=== PATIENT | female | born 1955 | race Caucasian/White ===

== ENCOUNTER 2017-02-09 08:58 | Emergency (ER) | payer MEDICAID ==
[~2017-02-09] VITALS: Ht 160 cm; Wt 90.7 kg
[~2017-02-09 08:58] MED LIST: ASPI-495 PO; ATOR20TA PO; CALC-15 PO; CHOL500052 PO; ESTR-3 PO; LISI-658 PO; METF500T4 PO; METO50TA3 PO; OMEP20CA10 PO
--- NOTE | 2017-02-09 09:00 | NUR ---
BIB SELF C/O COCCYX PAIN RADIATING LEFT BACK PAIN S/P FALL X 2 DAYS REGISTRAR COLLEGE OR UNIVERSITY, NAD NOTED, VSS, RESP EVEN AND UNLABORED, SKIN DRY AND WARM, WAITING FOR MD ACKERMAN.
[2017-02-09] MEDS ORDERED: KETOROLAC TROMETHAMINE INJ 30 MG/ML VIAL ONE (09:25)
--- NOTE | 2017-02-09 09:28 | NUR ---
PT TO XRAY
[2017-02-09] MEDS ORDERED: KETOROLAC TROMETHAMINE INJ 60 MG/2 ML VIAL IM ONE (09:30)
--- NOTE | 2017-02-09 10:23 | NUR ---
SANTIAGO MYRICK SPOKE TO DR OGDEN TRANSFER TO DR SCOTT
[2017-02-09 10:39] VITALS: BP 111/57
== END 2017-02-09 10:40 | disposition home or self-care (01) ==
LOC: ER 08:59
DX: S32.10XA Unspecified fracture of sacrum, initial encounter for closed fracture (principal); S32.2XXA Fracture of coccyx, initial encounter for closed fracture; I10 Essential (primary) hypertension; E11.9 Type 2 diabetes mellitus without complications; K21.9 Gastro-esophageal reflux disease without esophagitis; E78.00 Pure hypercholesterolemia, unspecified; Z90.710 Acquired absence of both cervix and uterus; Z90.49 Acquired absence of other specified parts of digestive tract; Z79.82 Long term (current) use of aspirin; W01.0XXA Fall on same level from slipping, tripping and stumbling without subsequent striking against object, initial encounter; Y93.89 Activity, other specified; Y92.89 Other specified places as the place of occurrence of the external cause; Y99.8 Other external cause status
CPT/HCPCS: 72110; 72170; 96372; 99284; A4606; J1885; Z7610

== ENCOUNTER 2018-09-24 06:59 | Emergency (ER) | payer MEDICAID, OTHER ==
[~2018-09-24] VITALS: Ht 162.6 cm; Wt 90.7 kg
[~2018-09-24 06:59] MED LIST changes: +METF-440 PO; -METF500T4 PO; +METO50TA16 PO; -METO50TA3 PO; -OMEP20CA10 PO; +OMEP20CA11 PO
--- NOTE | 2018-09-24 07:10 | NUR ---
Pt BIBSELF FROM HOME C/O RT FOOT PAIN & PRESSURE SINCE SATURDAY, AND HAS BEEN GETTING WORSE TODAY AND IS RADIATING UP TO THE RT KNEE. Pt DENIES HAVING GLF @ HOME/DENIES TRAUMA. Pt DENIES HAVING SOB. DENIES HAVING N/V/D. Pt ALREADY SEEN BY MD. NO S/S OF ACUTE DISTRESS OR SOB NOTED. WILL ENDORSE TO DAYSHIFT RN FOR Pt'S YOVANNY.
--- NOTE | 2018-09-24 08:54 | NUR ---
Patient ambulatory with a steady gait. NO IV heplock. Patient discharged to home in stable condition. Written and verbal after care instructions given. Patient verbalizes understanding of instruction.
[2018-09-24 08:55] VITALS: BP 143/72
== END 2018-09-24 08:57 | disposition home or self-care (01) ==
LOC: ER 06:59
DX: E11.40 Type 2 diabetes mellitus with diabetic neuropathy, unspecified (principal); I10 Essential (primary) hypertension; K21.9 Gastro-esophageal reflux disease without esophagitis; E78.00 Pure hypercholesterolemia, unspecified; Z90.49 Acquired absence of other specified parts of digestive tract; Z98.890 Other specified postprocedural states; Z79.82 Long term (current) use of aspirin
CPT/HCPCS: 93971-TC

== ENCOUNTER 2018-12-16 15:29 | Emergency (ER) | payer MEDICAID, OTHER ==
[~2018-12-16] VITALS: Ht 160 cm; Wt 91.6 kg
[2018-12-16] MEDS ORDERED: KETOROLAC TROMETHAMINE INJ 30 MG/ML VIAL IM ONE (16:30)
[2018-12-16] MEDS ORDERED: KETOROLAC TROMETHAMINE INJ 30 MG/ML VIAL ONE (16:44)
[2018-12-16] MEDS ORDERED: HYDROCODONE/APAP 5/325MG 1 EACH TABLET ONE (16:46)
[2018-12-16] MEDS ORDERED: HYDROCODONE/APAP 5/325MG 1 EACH TABLET PO ONE (17:00)
[2018-12-16 17:06] VITALS: BP 139/67
== END 2018-12-16 17:08 | disposition home or self-care (01) ==
LOC: ER 15:33
DX: M25.512 Pain in left shoulder (principal); I10 Essential (primary) hypertension; E11.9 Type 2 diabetes mellitus without complications; K21.9 Gastro-esophageal reflux disease without esophagitis; E78.00 Pure hypercholesterolemia, unspecified; Z98.890 Other specified postprocedural states; Z90.710 Acquired absence of both cervix and uterus; Z79.82 Long term (current) use of aspirin; Z79.899 Other long term (current) drug therapy
CPT/HCPCS: 73030-TC; J1885

== ENCOUNTER 2018-12-22 07:03 | Emergency (ER) | payer MEDICAID ==
[~2018-12-22] VITALS: Ht 160 cm; Wt 90.7 kg
--- NOTE | 2018-12-22 07:12 | NUR ---
LEFT UPPER ARM BRUISE, PAIN, PRESSURE SINCE YESTERDAY. ON ASPIRIN. ON ROOM AIR, BREATHING EVENLY AND UNLABORED. CONNECTED TO THE MONITOR AND PULSE OX. KEPT COMFORTABLE. WILL CONTINUE TO MONITOR ACCORDINGLY.
--- NOTE | 2018-12-22 07:12 | NUR ---
AT BEDSIDE FOR EVAL
--- NOTE | 2018-12-22 07:19 | NUR ---
Patient discharged to home in stable condition. Written and verbal after care instructions given. Patient verbalizes understanding of instruction.
[2018-12-22 07:20] VITALS: BP 151/73
== END 2018-12-22 07:20 | disposition home or self-care (01) ==
LOC: ER 07:10
DX: S40.022A Contusion of left upper arm, initial encounter (principal); I10 Essential (primary) hypertension; E11.9 Type 2 diabetes mellitus without complications; K21.9 Gastro-esophageal reflux disease without esophagitis; E78.00 Pure hypercholesterolemia, unspecified; Z98.890 Other specified postprocedural states; Z90.710 Acquired absence of both cervix and uterus; Z79.899 Other long term (current) drug therapy; Z79.84 Long term (current) use of oral hypoglycemic drugs; Z79.82 Long term (current) use of aspirin; X58.XXXA Exposure to other specified factors, initial encounter; Y93.89 Activity, other specified; Y92.89 Other specified places as the place of occurrence of the external cause; Y99.8 Other external cause status

== ENCOUNTER 2021-01-27 09:23 | Outpatient (CLI) | payer MEDICARE, OTHER ==
[~2021-01-27 09:23] MED LIST changes: -OMEP20CA11 PO; +OMEP20CA15 PO
== END 2021-01-27 23:59 | disposition home or self-care (01) ==
LOC: LAB 09:23
PROVIDERS: ATTEND Physician Assistant
DX: Z01.812 Encounter for preprocedural laboratory examination (principal); Z20.822 Contact with and (suspected) exposure to COVID-19
CPT/HCPCS: C9803; U0003

== ENCOUNTER 2021-02-02 05:17 | Inpatient (IN) | payer OTHER, MEDICARE ==
[~2021-02-02] VITALS: Ht 160 cm; Wt 87.5 kg
[2021-02-02] MEDS ORDERED: HYDROMORPHONE INJ 2 MG/ML DISP.SYRIN ONE (06:30)
[2021-02-02] MEDS ORDERED: ROCURONIUM BROMIDE 50 MG/5 ML ONE (06:30)
[2021-02-02] MEDS ORDERED: POLYMYXIN B SULFATE 500,000 UNITS ONE (07:03)
[2021-02-02] MEDS ORDERED: BUPIVACAINE 0.5 % PF 150 MG/30 ML VIAL ONE (07:03)
[2021-02-02] MEDS ORDERED: TRANEXAMIC ACID 3,000 MG in SODIUM CHLORIDE IRRIG SOLUTION 70 ML IR ONE (07:30)
[2021-02-02] MEDS ORDERED: FENTANYL PF 100MCG/2ML AMPUL ONE (08:27)
[2021-02-02] MEDS ORDERED: HYDROMORPHONE 1 MG/1 ML DISP.SYRIN ONE (08:49)
[2021-02-02] MEDS ORDERED: MAG HYDROX/AL HYDROX/SIMETH 30 ML UDC PO PRN ×2 (09:30→14:00)
[2021-02-02] MEDS ORDERED: diphenhydrAMINE HCL 25 MG CAPSULE PO PRN (09:30)
[2021-02-02] MEDS ORDERED: CLONIDINE HCL 0.1 MG TABLET PO PRN (09:30)
[2021-02-02] MEDS ORDERED: ONDANSETRON HCL/PF 4 MG/2 ML VIAL IV PRN (09:30)
[2021-02-02] MEDS ORDERED: oxyCODONE IR immediate release 5 MG PO PRN (09:30)
[2021-02-02] MEDS ORDERED: MENTHOL/CETYLPYRD (CEPACOL) 1 LOZ LOZENGE PO PRN (09:30)
[2021-02-02] MEDS ORDERED: HYDROMORPHONE 1 MG/1 ML DISP.SYRIN SQ ONE (09:30)
--- NOTE | 2021-02-02 10:15 | NUR ---
MS/RN RECEIVING NOTES RECEIVED PATIENT VIA GURNEY FROM DAY SURGERY, ADMITTED TO [facility]. S/P REVERSE TOTAL RIGHT SHOULDER ARTHROPLASTY WITH DR. ESQUIVEL. PATIENT IS ALERT AND ORIENTED X4, ABLE TO MAKE NEEDS KNOWN. SLEEPY. PER OR NURSE PAT, PATIENT HAS A GENERAL ANESTHESIA DURING SURGERY. ON OXYGEN AT 3 LPM VIA NASAL CANNULA, IV ACCESS ON LEFT HAND G#22 IS INTACT AND PATENT WITH A RUNNING IV OF D5 1/2 NS @ 125 ML/HR. V/S TAKEN: BP-116/62, PULSE- 70, RR-18, T-98.7, O2 SAT AT 97%. SOME DISCOMFORTS REPORTED. HAS A RIGHT SHOULDER IMMOBILIZER. ORIENTED PATIENT TO THE UNIT. SURGERY SITE ON RIGHT SHOULDER IS WRAPPED ON BANDAGE. INTACT AND CLEAN. SAFETY MEASURES IN PLACED: BED LOCKED ON LOWEST POSITION, SIDE RAILS UPX2, HOB ELEVATED, CALL LIGHT WITHIN REACH. WILL CONTINUE TO MONITOR PATIENT.
[2021-02-02] MEDS ORDERED: ACETAMINOPHEN 650 MG/20.3 ML UDC PO PRN ×2 (11:00)
[2021-02-02] MEDS ORDERED: HYDROCODONE/APAP 5/325MG TABLET PO PRN (11:00)
[2021-02-02] MEDS ORDERED: ZOLPIDEM TARTRATE 5 MG TABLET PO PRN ×2 (11:00→14:00)
[2021-02-02] MEDS ORDERED: BISACODYL SUPP (10 MG) 10 MG/SUPP.RECT SUPP.RECT RC PRN (11:00)
[2021-02-02] MEDS ORDERED: SENNOSIDES 8.6 MG TABLET PO PRN (11:00)
[2021-02-02 11:30] VITALS: BP 116/62
[2021-02-02] MEDS: IV D5/0.45 NACL 1,000 ML IV SCH ×2 (12:13→20:06)
[2021-02-02] MEDS ORDERED: ONDANSETRON HCL/PF 4 MG/2 ML VIAL IVP PRN (14:00)
[2021-02-02] MEDS ORDERED: Z GUARD REMEDY 2 OZ OINT TP PRN (14:00)
[2021-02-02] MEDS ORDERED: DEXTROSE 50%-WATER 50 ML DISP.SYRIN IV PRN (14:00)
[2021-02-02] MEDS ORDERED: MAGNESIUM HYDROXIDE 30 ML UDC PO PRN (14:00)
[2021-02-02] MEDS: ANCEF 1 GM/50 ML D5W IV SCH ×2 (15:29→22:32)
[2021-02-02 16:13] VITALS: BP 119/65
[2021-02-02] MEDS: METFORMIN 500 MG TABLET PO SCH (17:04)
[2021-02-02] MEDS: DOCUSATE SODIUM 100 MG CAPSULE PO SCH (17:04)
[2021-02-02] MEDS: METOPROLOL TARTRATE 50 MG TABLET PO SCH (17:04)
[2021-02-02] MEDS: BLOOD SUGAR DIAGNOSTIC 1 EACH STRIP IN SCH ×2 (17:15→21:37)
[2021-02-02] MEDS: INSULIN REGULAR, HUMAN 100 UNIT/ML 3 ML VIAL SQ PRN ×2 (17:23→22:12)
--- NOTE | 2021-02-02 18:44 | NUR ---
RN MS CLOSING NOTES Pt IS IN BED COMFORTABLE. SHE IS A/OX4 AND ON ROOM AIR. BREATHING IS EVEN AND UNLABORED. NO S/S OF DISTRESS. Pt HAS A L HAND IV WITH D5 1/2 NS @ 125 mL/hr. IV IS PATENT AND INTACT. Pt HAD R REVERSE TOTAL SHOULDER ARTHROPLASTY, LAST PAIN MED GIVEN WAS AT 1103, DILAUDID 0.5mL WAS GIVEN. HAS TOLERABLE PAIN AT THE MOMENT, AND HAS REFUSED PAIN MEDS SINCE LAST MED GIVEN. HAS A COMMODE AT BEDSIDE, WILL CALL FOR ASSISTANCE. ALL SAFETY MEASURES ARE IN PLACE, BED IS LOCKED AND IN LOWEST POSITION, 2 SIDE RAILS UP, CALL LIGHT AND BEDSIDE TABLE ARE WITHIN REACH. WILL ENDORSE TO ONCOMING SHIFT.
--- NOTE | 2021-02-02 19:22 | NUR ---
RN OPENING NOTE PATIENT IN BED, SITTING UP. S/P TOTAL R SHOULDER ARTHROPLASTY THIS AM. SLING ON R SHOULDER. PATIENT COMPLAINING OF MODERATE PAIN, WILL MANAGE PAIN APPROPRIATELY. PATIENT CURRENTLY ON RA, TOLERATING WELL, NO SOB/RESPIRATORY DISTRESS. L HAND 22 G PATENT AND INTACT, D5 1/2 NS RUNNING AT 125 ML/HR. SAFETY MEASURES IN PLACE: BED LOCKED AND IN LOWEST POSITION, CALL LIGHT WITHIN REACH, SIDE RAILS UP. WILL MONITOR PATIENT CLOSELY.
[2021-02-02] MEDS: HYDROMORPHONE 1 MG/1 ML DISP.SYRIN SQ PRN (19:58)
--- NOTE | 2021-02-02 19:58 | NUR ---
RN NOTE DILAUDID SQ 1 MG GIVEN FOR PAIN 10/04, WILL REASSESS PAIN AT A LATER TIME
[2021-02-02 20:00] VITALS: BP 105/55
[2021-02-02] MEDS ORDERED: RIVAROXABAN 10 MG TABLET PO SCH (21:00)
[2021-02-02] MEDS ORDERED: PANTOPRAZOLE 40 MG TABLET.DR PO SCH (22:00)
[2021-02-02] MEDS ORDERED: ATORVASTATIN 10 MG TABLET PO SCH (22:00)
--- NOTE | 2021-02-02 22:00 | NUR ---
RN NOTE BS 193 MG/DL, 3 UNIT COVERAGE GIVEN. WILL MONITOR PATIENT CLOSELY FOR HYPOGLYCEMIA.
[2021-02-03] MEDS: IV D5/0.45 NACL 1,000 ML IV SCH ×2 (04:00→11:42)
--- NOTE | 2021-02-03 04:00 | NUR ---
RN NOTE L HAND IV ACCESS INFILTRATED, DAVID VENDOR RELATIONSHIP MANAGER CALLED TO HAVE IV INSERTED. LARM/SHOULDER 22G INSERTED, PATENT AND INTACT, BUT, UNLESS MANUALLY STRETCHED THE IV PUMP WILL KEEP ALARMING "DOWN STREAM OCCLUSION", WILL INFORM ATMOSPHERIC DRIER TENDER MD REGARDING INSERTING IV
[2021-02-03] MEDS: HYDROMORPHONE 1 MG/1 ML DISP.SYRIN SQ PRN ×2 (04:25→14:04)
--- NOTE | 2021-02-03 04:25 | NUR ---
RN NOTE ADMINISTERED DILAUDID FOR PAIN 10/04, WILL REASSESS PAIN AT A LATER TIME. FIRST HYDROMORPHONE VIAL LEAKING CHARGE NURSE AWARE, WITNESSED WASTE OF MED COMPLETED ON PYXIS.
--- NOTE | 2021-02-03 06:03 | NUR ---
REQUESTED FOR MIDLINE INSERTION MULTIPLE PIV ATTEMPTS FAILED. ORDERED. CHARGE NURSE AWARE. Addendum: 02/03/21 at 0633 by SOILA GILES RN patient refuse midline
[2021-02-03] MEDS: BLOOD SUGAR DIAGNOSTIC 1 EACH STRIP IN SCH ×2 (06:34→11:42)
[2021-02-03] MEDS: INSULIN REGULAR, HUMAN 100 UNIT/ML 3 ML VIAL SQ PRN (06:37)
[2021-02-03 06:39] LABS: BASOPHILS % (AUTO) 0.5 % (0.0-2.0); EOSINOPHILS % (AUTO) 0.2 % (0.0-6.0); HEMATOCRIT 32 % (33-45); HEMOGLOBIN 9.9 g/dL (11.5-14.8); LYMPHOCYTES % (AUTO) 27.1 % (20.0-44.0); MEAN CORPUSCULAR HGB CONC 31 g/dl (31.0-36.0); MEAN CORPUSCULAR VOLUME 75 fL (82-100); MONOCYTES # (AUTO) 0.6 K/uL (0.1-1.30); MONOCYTES % (AUTO) 8.3 % (2.0-12.0); NEUTROPHILS # (AUTO) 4.6 K/uL (1.8-8.9); NEUTROPHILS % (AUTO) 63.9 % (43.0-81.0); PLATELET COUNT (AUTO) 212 K/uL (150-450); RED BLOOD CELL COUNT(AUTO) 4.22 MIL/uL (4.0-5.2); WHITE BLOOD COUNT (AUTO) 7.2 K/uL (4.3-11.0)
--- NOTE | 2021-02-03 06:48 | NUR ---
RN CLOSING NOTE BS 138 MG/DL, 2 UNITS GIVEN FOR COVERAGE. PATIENT DOES NOT REPORT PAIN AT THIS TIME. PATIENT STILL WEARS SHOULDER SLING. PATIENT'S IV ACCESS OR ISHMAEL 22G PATENT AND INTACT WHEN BEING FLUSHED BUT STILL NOT ABLE TO INFUSE MAINTENANCE IV. MANAGED PAIN APPROPRIATELY. SAFETY MEASURES IMPLEMENTED. ALL ORDERS CARRIED OUT. WILL ENDORSE TO DAY SHIFT NURSE TO [facility].
[2021-02-03 07:16] LABS: CALCIUM, SERUM 8.3 mg/dL (8.5-10.1); CREATININE 0.6 mg/dL (0.6-1.3); MAGNESIUM 1.9 mg/dL (1.8-2.4); PHOSPHORUS 3.2 mg/dL (2.5-4.9); POTASSIUM 4.4 mmol/L (3.5-5.1)
[2021-02-03] MEDS ORDERED: OMEPRAZOLE 20 MG CAPSULE.DR PO SCH (07:30)
--- NOTE | 2021-02-03 08:00 | NUR ---
m/s loom winder tender: initial assessment received pt in bed awake, a/ox4. s/p right shoulder arthroplasty. sling in place with surgical dressing in place. no c/o pain at this time. instructed to call for assistance. will continue to monitor.
[2021-02-03 08:12] VITALS: BP 141/74
[2021-02-03 08:14] VITALS: BP 141/74
[2021-02-03] MEDS: DOCUSATE SODIUM 100 MG CAPSULE PO SCH (08:42)
[2021-02-03] MEDS: METFORMIN 500 MG TABLET PO SCH ×2 (08:42→13:13)
[2021-02-03] MEDS: METOPROLOL TARTRATE 50 MG TABLET PO SCH (08:42)
[2021-02-03 08:43] VITALS: BP 141/74
[2021-02-03] MEDS ORDERED: LISINOPRIL (20MG) 20 MG TABLET PO SCH (09:00)
[2021-02-03] MEDS ORDERED: [UNRECOGNIZED DRUG - OTHER] PO SCH (09:00)
--- NOTE | 2021-02-03 09:22 | NUR ---
m/s wire basket maker: notes c/o 09/03 right shoulder pain, medicated with oxy ir 10mg po as ordered. instructed to call for assistance.
--- NOTE | 2021-02-03 10:22 | NUR ---
m/s molding engineer: notes pt in bed with eyes close. no s/s of resp. distress noted. will continue to monitor.
--- NOTE | 2021-02-03 11:08 | NUR ---
m/s aircraft rigging and controls mechanic: ortho f/u pt c/o itchiness from oxy ir medication as state, benadry 25mg po given as ordered. no rash noted. sugar leonard) at bedside. Addendum: 02/03/21 at 1442 by YONATHAN LOMELI PETROLEUM TERMINAL PLANT OPERATOR sugar LEONARD, ortho) demonstrated shoulder pendulum exercises to pt and verbalized understanding.
--- NOTE | 2021-02-03 11:30 | NUR ---
m/s american indian policy specialist: md visit dr. hawkins at bedside at this time.
--- NOTE | 2021-02-03 13:35 | NUR ---
m/s technology development intern: notes new order received from dr. bustillos to discharge pt home. order acknowledged. pt sounds asleep. will continue to monitor.
[2021-02-03] MEDS ORDERED: RIVA10TA PO (13:41)
--- NOTE | 2021-02-03 14:04 | NUR ---
m/s rn eligibility: notes pt awaken and c/o 8/10 right shoulder pain, medicated with dilaudid 1mg sq to left arm. also informed pt that she is being in discharge today. pt to call her family to pick her up. will continue to monitor.
--- NOTE | 2021-02-03 14:34 | NUR ---
m/s surgical instrument technician: notes pt verbalized relief of pain. instructed to call for assistance. for d'c planning home today, awaiting crab picker.
--- NOTE | 2021-02-03 15:40 | NUR ---
m/s solar energy systems designer: notes son here and discharge instructions given to son and pt. both verbalized understanding. h/l removed with tip intact. prescription called in to pt's pharmacy, spoke to stu (Pharmacist) and will deliver xarelto to pt's address. son and pt aware and agreed.
--- NOTE | 2021-02-03 15:46 | NUR ---
m/s automotive refinisher: notes discharge home in stable condition with all valuables and d'c papers.
[2021-02-16] MEDS ORDERED: ASPIRIN 325 MG TABLET PO SCH (09:00)
== END 2021-02-03 15:45 | disposition home or self-care (01) | DRG 322 ==
LOC: DS 05:17 → MED 09:34
PROC: 0RRJ00Z Replacement of Right Shoulder Joint with Reverse Ball and Socket Synthetic Substitute, Open Approach (ICD-10-PCS; principal; 2021-02-02)
DX: M75.101 Unspecified rotator cuff tear or rupture of right shoulder, not specified as traumatic (principal); E11.9 Type 2 diabetes mellitus without complications; K21.9 Gastro-esophageal reflux disease without esophagitis; I10 Essential (primary) hypertension; E78.5 Hyperlipidemia, unspecified; E66.9 Obesity, unspecified; Z68.34 Body mass index [BMI] 34.0-34.9, adult; Z79.84 Long term (current) use of oral hypoglycemic drugs; M19.011 Primary osteoarthritis, right shoulder
CPT/HCPCS: 36415; 80048-TC; 82962-TC; 83735-TC; 84100-TC; 85025-TC; 88305-TC; 88311-TC; A4217; A6209; C1776; G0378; J0690; J1100; J1170; J1815; J1885; J2405; J2704; J3010; J3490; J7030; J7040; J7060; Q0163

== ENCOUNTER 2022-09-17 11:44 | Emergency (ER) | payer MEDICARE, OTHER ==
[~2022-09-17] VITALS: Ht 162.6 cm; Wt 89.4 kg
[~2022-09-17 11:44] MED LIST changes: +RIVA10TA PO
[2022-09-17 12:08] VITALS: BP 105/58; TEMP 98.6
--- NOTE | 2022-09-17 12:08 | NUR ---
c/o knee pain lt for 10 days, took ibu profen. pain 8/10 on pain scale.
--- NOTE | 2022-09-17 13:07 | NUR ---
Patient discharged to home in stable condition. Written and verbal after care instructions given. Patient verbalizes understanding of instruction.
[2022-09-17 13:35] VITALS: O2SAT 100
== END 2022-09-17 13:36 | disposition home or self-care (01) ==
LOC: ER 12:03
DX: M25.562 Pain in left knee (principal); I10 Essential (primary) hypertension; E11.9 Type 2 diabetes mellitus without complications; K21.9 Gastro-esophageal reflux disease without esophagitis; E78.00 Pure hypercholesterolemia, unspecified; Z79.84 Long term (current) use of oral hypoglycemic drugs; Z90.710 Acquired absence of both cervix and uterus; Z79.899 Other long term (current) drug therapy
CPT/HCPCS: 73564-TC